=== PATIENT | male | born 1985 | race Two or more races ===

== ENCOUNTER 2016-04-23 08:08 | Emergency (ER) | payer OTHER ==
[~2016-04-23] VITALS: Ht 165.1 cm; Wt 74.8 kg
[2016-04-23 08:27] VITALS: BP 111/65
--- NOTE | 2016-04-23 08:40 | Emergency Room Report ---
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 The patient reduced it himself almost immediately. He's been having swelling over the PIP with difficulty flexing the hand. No neurovascular complaints, no other injuries reported. Patient is right-handed. Patient use some ice as well as Tylenol prior to arrival. Allergies: Coded Allergies: No Known Allergies (Unverified , 04/23/16) Patient History Past Medical History: see triage record Social History: Denies: alcohol use, smoking Immunizations: UTD Reviewed Nursing Documentation: PMH: Agreed Nursing Documentation-PMH Past Medical History: No Stated History Review of Systems Musculoskeletal: Reports: joint pain, see HPI All Other Systems: negative except mentioned in HPI Physical Exam Vital Signs Date Time Temp Pulse Resp B/P Pulse Ox O2 Delivery O2 Flow Rate FiO2 04/23/16 08:27 98.1 67 16 111/65 98 Room Air Sp02 EP Interpretation: reviewed, normal General Appearance: normal inspection, well appearing, no apparent distress, alert, GCS 15, non-toxic Head: atraumatic Eyes: bilateral eye normal inspection ENT: normal ENT inspection, hearing grossly normal, normal voice Neck: normal inspection, full range of motion, supple, no bony tend Respiratory: normal inspection, lungs clear, normal breath sounds, no respiratory distress, no retraction, no wheezing Cardiovascular #1: regular rate, rhythm, no edema Gastrointestinal: normal inspection, normal bowel sounds, non tender, soft, no guarding, no hernia Genitourinary: no CVA tenderness Musculoskeletal: back normal, other - mild joint swelling and tenderness at PIP , right middle finger, no deformity. Neurologic: normal inspection, alert, responsive, speech normal Psychiatric: normal inspection, judgement/insight normal, mood/affect normal Skin: normal inspection, normal color, no rash Medical Decision Making Diagnostic Impression: Primary Impression: Injury of upper extremity Additional Impression: Injury of right upper extremity ER Course Generally healthy, well-appearing gentleman with right ring finger injury, likely dislocations, subluxation with reduction prior to presentation. Neurovascularly stable. Will obtain screening x-rays to rule out any occult fractures. Patient will be recommended mary alice taping of the finger and protected work with the right hand. This was an occupational injury Referred to his occupational health clinician for followup. X-ray show no acute fracture, patient had his fingers mary alice tape, received ibuprofen and a prescription as well as work restriction and work note. Other X-Ray Diagnostic Results Other X-Ray Diagnostic Results : X-Ray Ordered: right ring finger Date: Apr 23, 2016 Time: 08:40 EP Interpretation: Yes Findings: no fractures, no dislocation, other - soft tissue swelling, Rt PIP ring finger Number of Views: 3 Reevaluation Time: 10:00 Last Vital Signs Date Time Temp Pulse Resp B/P Pulse Ox O2 Delivery O2 Flow Rate FiO2 04/23/16 08:27 98.1 67 16 111/65 98 Room Air Status: improved Disposition: HOME, SELF-CARE Condition: Stable Scripts Ibuprofen* (MOTRIN*) 600 Mg Tablet 600 MG ORAL Q6H Y for For Pain, #30 TAB Prov: Rich Espinoza MD 04/23/16 Rich Espinoza MD Apr 23, 2016 08:40
[2016-04-23] MEDS ORDERED: IBUPROFEN600 MG ORAL (09:23)
[2016-04-23 09:46] VITALS: BP 108/66
--- NOTE | 2016-04-23 11:32 | Diagnostic Imaging Report ---
Indication: Pain Comparison: None Findings: Images of the third and fourth digits of the right hand obtained. There is no fracture or malalignment. No foreign body identified. Impression: Negative study
== END 2016-04-23 09:50 | disposition home or self-care (01) ==
LOC: EMR 08:40
DX: S69.91XA Unspecified injury of right wrist, hand and finger(s), initial encounter (principal); W23.0XXA Caught, crushed, jammed, or pinched between moving objects, initial encounter; Y92.89 Other specified places as the place of occurrence of the external cause; Y99.0 Civilian activity done for income or pay
CPT/HCPCS: 99283